=== PATIENT | male | born 1995 | race Caucasian/White ===

== ENCOUNTER 2017-02-27 21:10 | Inpatient (IN) | payer OTHER ==
[2017-02-27] MEDS ORDERED: fentaNYL 100 MCG/2 ML INJ IVP ONE (21:16)
[2017-02-27] MEDS ORDERED: NS 1,000 ML IV ONE (21:18)
[2017-02-27] MEDS ORDERED: HYDROmorphONE/DILAUDID 1 MG/ML INJ IVP ONE (21:18)
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
[2017-02-27 21:34] LABS: % IMMATURE GRANULYOCYTES 0.7 % (0.0-1.1); ABSOLUTE IMMATURE GRANULOCYTES 0.11 10^3/uL (0.00-0.10); ADD DIFF? NO; ADD MORPH? NO; ADD SCAN? NO; ATYPICAL LYMPHOCYTE FLAG 20 (0-99); FRAGMENT RBC FLAG 0 (0-99); HEMATOCRIT 47.9 % (40.0-51.0); HEMOGLOBIN 16.6 g/dL (13.7-17.5); LEFT SHIFT FLG 0 (0-99); LIPEMIA HEMOLYSIS FLAG 90 (0-99); MEAN CELL HEMOGLOBIN 31.1 pg (27.9-34.1); MEAN CELL HEMOGLOBIN CONCENTR. 34.7 g/dL (32.4-36.7); MEAN CELL VOLUME 89.7 fL (81.5-99.8); MEAN PLATELET VOLUME 10.5 fL (8.7-11.7); PLATELET CLUMPS FLAG 0 (0-99); PLATELET COUNT 382 10^3/uL (150-400); RED BLOOD CELL COUNT 5.34 10^6/uL (4.40-6.38); RED CELL DISTRIBUTION WIDTH 12.7 % (11.5-15.2)
[2017-02-27 21:44] LABS: INR 0.93 (0.83-1.16); PROTIME(PATIENT) 12.4 SEC (12.0-15.0)
[2017-02-27 21:45] LABS: APTT 24.3 SEC (23.0-38.0)
[2017-02-27 21:48] LABS: ANION GAP 18 mEq/L (8-16); CALCIUM 9.5 mg/dL (8.5-10.4); CARBON DIOXIDE 19 mEq/l (22-31); CHLORIDE 102 mEq/L (97-110); CREATININE 1.3 mg/dL (0.7-1.3); ETHANOL SERUM < 10 mg/dL (0-10); GLOMERULAR FILTRATION RATE > 60; GLUCOSE 132 mg/dL (70-100); POTASSIUM 3.1 mEq/L (3.5-5.2); SODIUM 139 mEq/L (134-144)
[2017-02-27] MEDS ORDERED: ONDANSETRON 4 MG/2 ML VIAL IVP PRN (22:03)
[2017-02-27] MEDS ORDERED: LR 1,000 ML IV SCH (22:30)
[2017-02-27] MEDS: LORazepam 2 MG/ML INJ IVP PRN (22:53)
[2017-02-27] MEDS: HYDROmorphONE/DILAUDID 1 MG/ML INJ IVP PRN ×2 (22:53→23:54)
[2017-02-27] MEDS: HYDROCODONE/APAP 5/325 TAB PO PRN (23:46)
[2017-02-27] MEDS: ZOLPIDEM TARTRATE 5 MG TAB PO PRN (23:46)
[2017-02-28] MEDS: HYDROmorphONE/DILAUDID 1 MG/ML INJ IVP PRN ×12 (02:42→22:07)
[2017-02-28] MEDS: LORazepam 2 MG/ML INJ IVP PRN ×3 (02:56→22:07)
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
[2017-02-28] MEDS: HYDROCODONE/APAP 5/325 TAB PO PRN ×2 (05:51→18:47)
[2017-02-28] MEDS ORDERED: fentaNYL 100 MCG/2 ML INJ ONE ×5 (06:41→15:17)
[2017-02-28] MEDS ORDERED: ceFAZolin 2 GM/DEXTROSE 100 ML IV ONE (08:39)
--- NOTE | 2017-02-28 08:39 | SOAPPROG ---
SOAP Progress Note Assessment/Plan: Assessment: Midshaft right femur fracture Plan:IM nail fixation today at Noon. 02/28/17 08:39 Subjective: Doing OK but Spasms last night were bad Objective: Vital Signs Temp Pulse Resp BP Pulse Ox 36.3 C 80 12 110/66 100 02/28/17 07:53 02/28/17 07:53 02/28/17 07:53 02/28/17 07:53 02/28/17 07:53 02/27/17 02/28/17 03/01/17 05:59 05:59 05:59 Intake Total 1709 Output Total 700 Balance 1009 PT 12.4 SEC (12.0-15.0) 02/27/17 21:15 INR 0.93 (0.83-1.16) 02/27/17 21:15 Mid shaft Femur fracture Right. NVI B LE. Minimal Right thigh swelling ICD10 Worksheet Patient Problems: Problems Problem Status Onset Femur fracture, right Acute
[2017-02-28] MEDS ORDERED: POTASSIUM CL 20 MEQ/15 ML UDCUP PO ONE (08:58)
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
[2017-02-28] MEDS ORDERED: POTASSIUM CL 20 MEQ TAB PO ONE (10:00)
[2017-02-28] MEDS: CYCLOBENZAPRINE 10 MG TAB PO SCH ×3 (10:12→22:08)
[2017-02-28] MEDS ORDERED: LR 1,000 ML IV ONE (12:06)
[2017-02-28] MEDS ORDERED: LIDOCAINE 1% 2 ML INJ ID PRN (12:06)
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
[2017-02-28] MEDS ORDERED: CEFAZOLIN 2 GM/DEXTROSE/100 ML BAG IV ONE (12:33)
[2017-02-28] MEDS ORDERED: PROPOFOL/EMULSION 500 MG/50 ML BOTTLE IV ONE (12:38)
[2017-02-28] MEDS ORDERED: DEXAMETHASONE 4 MG/ML VIAL IVP PRN (13:09)
[2017-02-28] MEDS ORDERED: ONDANSETRON 4 MG/2 ML VIAL IVP PRN (13:09)
[2017-02-28] MEDS ORDERED: ALBUTEROL 3 ML DEYVIAL IH PRN (13:09)
[2017-02-28] MEDS ORDERED: NALOXONE HCL 0.4 MG/ML INJ IVP PRN ×2 (13:09→14:44)
[2017-02-28] MEDS ORDERED: LR 500 ML IV PRN (13:09)
[2017-02-28] MEDS ORDERED: BUPIVACAINE 0.25% 30 ML SDV ONE (13:13)
[2017-02-28] MEDS ORDERED: MEPERIDINE 25 MG/ML SYR ONE (14:42)
[2017-02-28] MEDS ORDERED: HYDROmorphONE/DILAUDID 1 MG/ML INJ ONE ×2 (14:42→15:17)
[2017-02-28] MEDS: fentaNYL 100 MCG/2 ML INJ IVP PRN ×5 (14:43→15:44)
[2017-02-28] MEDS ORDERED: MEPERIDINE 25 MG/ML SYR IVP PRN (14:44)
--- NOTE | 2017-02-28 14:45 | POSTANESTH ---
Post Anesthetic Evaluation Cardiovascular Status: Normal, Stable Respiratory Status: Normal, Stable Level of Consciousness/Mental Status: Can Participate in Eval Pain Control: Inadeq, Add Tx Required Nausea/Vomiting Control: Adequate, Prn Tx Ordered Complications Possibly Related to Anesthesia: None Noted
--- NOTE | 2017-02-28 14:48 | POSTOPPROG ---
Post Op Note Date of Operation: 02/28/17 Surgeon: Zachariah Hernandez [employer]: Sandra Koch PA-C Anesthesiologist: Dr. Jeyson Balderrama Anesthesia: GET(General Endotracheal) Pre-op Diagnosis: Right Midshaft femur fracture Post-op Diagnosis: Right Midshaft femur fractuer Indication: Unstable femur fracture Procedure: Right Midshaft Femur fracture IM Nail: Synthes [id number] Findings: See dictated operative report Inf/Abcess present in the surg proc area at time of surgery?: No EBL: 50-100 (minimal blood loss about 20 cc) Complications: none Specimen(s): none
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
[2017-02-28] MEDS: ceFAZolin 2 GM/DEXTROSE 100 ML IV SCH ×2 (22:08→23:14)
[2017-02-28] MEDS: ZOLPIDEM TARTRATE 5 MG TAB PO PRN (22:08)
[2017-02-28] MEDS: OXYCODONE/APAP 5/325 TAB PO PRN (22:08)
[2017-02-28] MEDS: D5W 1/2 NS W/ 20 KCl/L 1,000 ML IV SCH (22:13)
[2017-03-01] MEDS: OXYCODONE/APAP 5/325 TAB PO PRN (03:17)
[2017-03-01] MEDS: HYDROmorphONE/DILAUDID 1 MG/ML INJ IVP PRN ×7 (03:26→21:16)
[2017-03-01] MEDS: LORazepam 2 MG/ML INJ IVP PRN ×4 (03:26→20:34)
[2017-03-01] MEDS: ceFAZolin 2 GM/DEXTROSE 100 ML IV SCH ×2 (05:09→13:24)
[2017-03-01 05:20] LABS: HEMATOCRIT 36.5 % (40.0-51.0); HEMOGLOBIN 12.3 g/dL (13.7-17.5)
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
[2017-03-01] MEDS: oxyCODONE IR 5 MG TAB PO PRN ×4 (07:33→20:34)
[2017-03-01] MEDS: CYCLOBENZAPRINE 10 MG TAB PO SCH ×3 (07:58→22:47)
[2017-03-01] MEDS: ASPIRIN 325 MG TAB PO SCH (07:58)
[2017-03-01] MEDS ORDERED: IOPAMIDOL (ISOVUE 370) 100 ML BTL IV ONE ×2 (18:34→18:59)
[2017-03-01] MEDS: ACETAMINOPHEN 325 MG TAB PO PRN (22:47)
[2017-03-02] MEDS: oxyCODONE IR 5 MG TAB PO PRN ×3 (01:32→10:54)
[2017-03-02] MEDS: HYDROmorphONE/DILAUDID 1 MG/ML INJ IVP PRN ×4 (01:33→06:34)
[2017-03-02] MEDS: LORazepam 2 MG/ML INJ IVP PRN ×2 (01:36→06:33)
[2017-03-02] MEDS: D5W 1/2 NS W/ 20 KCl/L 1,000 ML IV SCH (01:40)
[2017-03-02 07:22] VITALS: BP 114/68; PULSE 92; RESP 12; TEMP 97.8; O2SAT 92
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
[2017-03-02] MEDS ORDERED: HYDROmorphONE/DILAUDID 2 MG TAB PO PRN (07:55)
[2017-03-02] MEDS: ACETAMINOPHEN 325 MG TAB PO PRN (09:29)
[2017-03-02] MEDS: CYCLOBENZAPRINE 10 MG TAB PO SCH (09:30)
[2017-03-02] MEDS: ASPIRIN 325 MG TAB PO SCH (09:30)
--- NOTE | 2017-03-02 14:06 | ASMTCMCOM ---
CM Note CM Note Notes: PT rec inpatient rehab vs SNF vs home 24/hr sup, OT rec inpatient rehab. Pt agreeable to ipr or SNF. Pt does not meet criteria for [facility] ipr. Yesterday this CM spoke w pt mother Yenifer who is in [place], she can come to [place] to assist pt. Yenifer prefers pt d/c to a SNF since that would buy her some time to get to [place]. Yenifer reports pt uses marijuana and is concerned that he asked friends to bring him edibles to the hospital. Yenifer wants [facility] to mandate pt can have no visitors, this CM indicated we could not accommodate that request under the current circumstances. TC to [facility] [phone] who report [employer], [facility], [employer], [facility], [facility], [place], [facility] [place] [facility], [facility], [place], [facility], [facility], [employer] and [facility] in network. Maria T with [facility] report they are not in network and pt would have a 40 % co-pay responsibility there, she would not be able to give an estimate since they would not know until pt was billed. [employer] met w pt. Marijuana was found in pt room and had to be removed by security. Pt decides he wants to d/c to a friends house, pt has his RV/van parked on a friends property, he can stay w that friend. Pt arranged transport w a friend picking him up. Date Signed: 03/02/2017 02:05 PM Electronically Signed By:SHAHID Rosas
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
== END 2017-03-02 13:06 | disposition home or self-care (01) | DRG 482 ==
LOC: F3N 22:50
PROVIDERS: ADMIT Surgery; ATTEND Surgery
PROC: 0QS806Z Reposition Right Femoral Shaft with Intramedullary Internal Fixation Device, Open Approach (ICD-10-PCS; principal; 2017-02-28 12:30)
DX: S72.321A Displaced transverse fracture of shaft of right femur, initial encounter for closed fracture (principal); S01.511A Laceration without foreign body of lip, initial encounter; S81.012A Laceration without foreign body, left knee, initial encounter; V43.52XA Car driver injured in collision with other type car in traffic accident, initial encounter
CPT/HCPCS: 92523-GN; 96374; 97116-GP; 97161-GP; 97165-GO; 97535-GO; C1713; G0480; J0171; J0690; J1170; J2060; J2704; J3010; Q9967